=== PATIENT | female | born 1955 | race Caucasian/White ===

== ENCOUNTER 2017-08-23 08:18 | Outpatient (CLI) | payer BC | END 2017-08-23 08:19 | disposition home or self-care (01) | LOC: BICULT 08:18 | PROVIDERS: ATTEND Family Medicine | DX: R14.0 Abdominal distension (gaseous) (principal); N13.5 Crossing vessel and stricture of ureter without hydronephrosis; Z90.710 Acquired absence of both cervix and uterus | CPT/HCPCS: 76700; 76856 ==

== ENCOUNTER 2018-02-15 16:11 | Outpatient (CLI) | payer BC | END 2018-02-15 16:12 | disposition home or self-care (01) | LOC: BICRAD 16:11 | PROVIDERS: ATTEND Family Medicine | DX: S52.502A Unspecified fracture of the lower end of left radius, initial encounter for closed fracture (principal); S52.122A Displaced fracture of head of left radius, initial encounter for closed fracture ==